=== PATIENT | female | born 1945 ===

== ENCOUNTER 2018-10-22 06:26 | Day surgery (SDC) | payer OTHER ==
[~2018-10-22 06:26] MED LIST: AVAPRO300 MG PO; CATAPRES0.1 MG PO; CRESTOR5 MG PO; FORTAMET500 MG PO; MOBIC15 MG PO; PLAVIX75 MG PO; SYNTHROID88 MCG PO; VASOFLEX PO; VERAPAMIL ER240 MG PO; ZANTAC300 MG PO; ZETIA PO
== END 2018-10-22 22:56 | disposition home or self-care (01) ==
LOC: CIR.AMB 06:26
DX: D05.12 Intraductal carcinoma in situ of left breast (principal)